=== PATIENT | female | born 1945 | race Caucasian/White ===

== ENCOUNTER 2017-10-04 22:35 | Inpatient (IN) | payer OTHER ==
[~2017-10-04] VITALS: Ht 160 cm; Wt 62.1 kg
[~2017-10-04 22:35] MED LIST: ZOFRAN ODT4 MG PO
[2017-10-04 22:55] LABS: ABSOLUTE BASOPHILS 0.1 thou/uL (0.0-0.2); ABSOLUTE EOSINOPHILS 0.3 thou/uL (0.0-0.7); ABSOLUTE LYMPHOCYTES 2.3 thou/uL (0.8-5.3); ABSOLUTE MONOCYTES 0.6 thou/uL (0.0-1.2); ABSOLUTE NEUTROPHILS 4.1 thou/uL (1.6-8.1); BASOPHILS 1.2 %; HEMATOCRIT 39.9 % (37.0-47.0); HEMOGLOBIN 14.1 gm/dL (12.0-15.0); LYMPHOCYTES 31.2 %; MCH 33.5 pg (26.0-34.0); MCHC 35.3 g/dL (28.0-37.0); MONOCYTES 8.4 %; MPV 7.3 fl. (7.2-11.1); NUCLEATED RBCS 0 /100WBC; PLATELET COUNT* 265 thou/uL (150-400); POLYS 55.2 %; WBC 7.5 thou/uL (4.0-11.0)
[2017-10-04 23:07] LABS: ANION GAP 8 mmol/L (7-16); BUN 14 mg/dL (7-18); CALCIUM 8.7 mg/dL (8.5-10.1); CHLORIDE 103 mmol/L (98-107); CO2 31 mmol/L (21-32); CREATININE 1.1 mg/dL (0.6-1.3); GLUCOSE 127 mg/dL (70-99); POTASSIUM 3.6 mmol/L (3.5-5.1); SODIUM 142 mmol/L (136-145)
[2017-10-04 23:17] LABS: ALBUMIN 3.7 g/dL (3.4-5.0); ALKALINE PHOSPHATASE 76 U/L (46-116); LIPASE 187 U/L (73-393); NT-PRO BRAIN NAT PEPTIDE 123 pg/mL (<300); SGOT 24 U/L (15-37); SGPT 25 U/L (30-65); TOTAL BILIRUBIN 0.4 mg/dL (<0.1-1.0); TOTAL PROTEIN 7.7 g/dL (6.4-8.2); TROPONIN-I LEVEL <0.06 ng/mL (<0.06)
[2017-10-04 23:19] VITALS: BP 135/77
[2017-10-04 23:19] LABS: APTT 26.2 Seconds (25.0-31.3); PROTIME 9.8 Seconds (9.20-11.50)
[2017-10-04] MEDS ORDERED: EVISTA PO (23:27)
[2017-10-05 02:30] VITALS: BP 138/72
[2017-10-05 03:07] VITALS: BP 159/75
[2017-10-05 08:00] VITALS: BP 122/74; BP 128/81
[2017-10-05 11:12] VITALS: BP 159/75
--- NOTE | 2017-10-05 13:08 | EKG ---
[place] [address] ELECTROCARDIOGRAM REPORT Name: NILSON MA Room: [place] [address] ADM IN .R.#: [id number] Admission: 10/05/17 Attend Phys: Merlin Hawkins Discharge: Date of : 41 Report #: [id number] THIS REPORT FOR: //name// [facility] ED Test Date: 2017-10-04 Test Time: 22:41:43 Pat Name: NILSON MA Department: Room: Gender: F [employer]: : 1945 Requested By: Denise Mccall Order Number: [id number] MD: Chase Contreras Measurements Intervals [place] Rate: 72 P: 57 MT: 166 QRS: -3 QRSD: 90 T: 26 QT: 405 QTc: 444 Interpretive Statements Sinus rhythm Abnormal R-wave progression, early transition Baseline wander in lead(s) V1 Compared to ECG 12/10/2011 03:23:23 No significant changes Electronically Signed On 10-05-2017 13:08:31 CDT by Chase Contreras [email or web address] <ELECTRONICALLY SIGNED> By: Chase Contreras MD, FAC 10/05/17 1308 [id number] Chase Contreras MD, [facility] /EPI
[2017-10-05 13:35] VITALS: BP 142/71
[2017-10-05 17:59] VITALS: BP 159/75
== END 2017-10-05 18:18 | disposition home or self-care (01) | DRG 313 ==
LOC: M.ERS 22:35 → M.TBA-ER 10-05 02:09 → M.2W 10-05 03:17
PROVIDERS: Personal Emergency Response Attendant; ADMIT Internal Medicine
DX: R07.89 Other chest pain (principal); E78.5 Hyperlipidemia, unspecified; M19.90 Unspecified osteoarthritis, unspecified site; K86.9 Disease of pancreas, unspecified; Z85.3 Personal history of malignant neoplasm of breast; Z82.49 Family history of ischemic heart disease and other diseases of the circulatory system

== ENCOUNTER → 2017-11-06 | Outpatient (CLI) | payer OTHER ==
[~2017-11-06] MED LIST changes: +EVISTA PO
--- NOTE | 2017-11-06 13:12 | EXE ---
[place] [address] STRESS ECHOCARDIOGRAM Name: NILSON MA Room: [facility]#: [id number] Admission: 11/06/17 Attend Phys: Chase Contreras, Discharge: Date of : 41 Date of Service: 11/06/17 1311 Report #: [id number] THIS REPORT FOR: //name// APPROVED REPORT Study performed: 11/06/2017 10:50:01 Exam: Stress Echocardiogram Indication: Chest pain Patient Location: Out-Patient Stress Nurse: Jesi Woodruff RN Supervising Physician: Dylon Fuentes MD Status: routine Ht: 5 ft 3 in HR: 68 bpm BP: 137/77 mmHg Medical History Cardiac Risk Factors: FHX of CAD Procedure The patient underwent an Exercise Stress Test using the Jan Protocol. Blood pressure, heart rate, and EKG were monitored. An Echocardiogram was performed by front end technician in four stages in quad fashion. At peak stress, four selected images were obtained and placed side by side with resting images for comparison. Stress Test Details Stress Test: Exercise stress testing was performed using a Jan protocol. HR Resting HR: 68 bpm Max Heart Rate (APMHR): 146 bpm Max HR Achieved: 136 bpm Target HR (85% APMHR): 124 bpm % of APMHR: 93 Recovery HR: 76 bpm HR response to stress: Normal HR response to stress BP Resting BP: 137/77 mmHg Max BP: 188/75 mmHg Recovery BP: 136/75 mmHg ECG Resting ECG: Sinus Rhythm Stress ECG: Sinus Rhythm, nonspecific [place] [address] STRESS ECHOCARDIOGRAM Name: NILSON MA Room: [facility]#: [id number] Admission: 11/06/17 Attend Phys: Chase Contreras, Discharge: Date of : 41 Date of Service: 11/06/17 1311 Report #: [id number] ST Change: Upsloping ST depression Maximum ST Deviation: 0.5 mm Recovery ECG: Sinus Rhythm, nonspecific ST-T abnormalities Recovery ST Change: Upsloping ST depression Recovery ST Deviation: 0.5 mm Recovery Arrhythmia: VPC Clinical Reason for Termination: Completed protocol, Dyspnea, Maximal effort Exercise duration: 5 min sec Highest Stage Achieved: Stage 2: 2.5 mph at 12% grade. Exercise capacity: 6.99 METs Pre-Stress Echo The resting Echocardiogram showed normal left ventricular contractility with an estimated Ejection Fraction of about 55-60%. Post-Stress Echo The stress Echocardiogram showed normal left ventricular contractility with an estimated Ejection Fraction of about 65-70%. Conclusion Clinical Response: Non-ischemic Exercise Capacity: Below Average Stress ECG Response: Equivocal Stress Echo Images: Non-ischemic low risk stress echo for future cardiac events Other Information Study Quality: Good <Conclusion> low risk stress echo for future cardiac events <ELECTRONICALLY SIGNED> By: Dylon Fuentes MD, FACC 11/06/171310 10 10 Dylon Fuentes MD, FACC /INF
== END ==
LOC: M.CRD 10:04
DX: R07.89 Other chest pain (principal)